=== PATIENT | male | born 1975 | race Caucasian/White ===

== ENCOUNTER 2017-03-03 19:56 | Emergency (ER) | payer MEDICAID, OTHER ==
[~2017-03-03] VITALS: Ht 175.3 cm; Wt 90.5 kg
[2017-03-03] MEDS ORDERED: PERTUSS(ACELL),DIPH,TET VAC/PF 0.5 ML VIAL IM ONE (21:30)
[2017-03-03] MEDS ORDERED: HYDROCODONE/ACETAMINOPHEN 5-325 MG TABLET PO ONE (21:30)
[2017-03-03 22:22] VITALS: BP 142/82
== END 2017-03-03 22:25 | disposition home or self-care (01) ==
LOC: EMS 19:58
DX: S91.302A Unspecified open wound, left foot, initial encounter (principal); R03.0 Elevated blood-pressure reading, without diagnosis of hypertension; F19.90 Other psychoactive substance use, unspecified, uncomplicated; W22.8XXA Striking against or struck by other objects, initial encounter; Y93.01 Activity, walking, marching and hiking; Y92.89 Other specified places as the place of occurrence of the external cause; Y99.8 Other external cause status
CPT/HCPCS: 90471; 90715; 99284

== ENCOUNTER 2018-03-09 17:33 | Emergency (ER) | payer OTHER ==
[~2018-03-09] VITALS: Ht 172.7 cm; Wt 90.9 kg
[2018-03-09 18:03] VITALS: BP 141/86
== END 2018-03-09 21:39 | disposition left against medical advice (07) ==
LOC: EMS 17:33
DX: M25.529 Pain in unspecified elbow (principal); Z53.21 Procedure and treatment not carried out due to patient leaving prior to being seen by health care provider

== ENCOUNTER 2019-05-16 17:29 | Emergency (ER) | payer OTHER ==
[~2019-05-16] VITALS: Ht 175.3 cm; Wt 100.0 kg
[2019-05-16 18:15] LABS: BASOPHILS % (AUTO) 1.1 % (0.0-2.0); EOSINOPHILS % (AUTO) 3.5 % (1.0-6.0); HEMATOCRIT 37.8 % (41-53); HEMOGLOBIN 11.9 g/dL (13.5-17.5); LYMPHOCYTES # (AUTO) 0.9 K/uL (1.0-4.8); LYMPHOCYTES % (AUTO) 19.9 % (22.0-44.0); MEAN CORPUSCULAR HEMOGLOBIN 26.2 pg (26.0-34.0); MEAN CORPUSCULAR HGB CONC 31.4 G/dL (31.0-37.0); MEAN CORPUSCULAR VOLUME 83 fL (80-100); MONOCYTES # (AUTO) 0.3 K/uL (0.1-1.0); MONOCYTES % (AUTO) 6.6 % (2.0-9.0); NEUTROPHILS # (AUTO) 3.1 K/uL (1.8-7.7); NEUTROPHILS % (AUTO) 68.9 % (40.0-70.0); PLATELET COUNT (AUTO) 398 K/uL (150-450); RED BLOOD CELL COUNT(AUTO) 4.53 MIL/uL (4.50-5.90); RED CELL DISTRIBUTION WIDTH 17.3 % (11.5-14.5)
[2019-05-16 18:25] LABS: ANION GAP 6 mmol/L (8-16); CARBON DIOXIDE 30 mmol/L (22-29); CHLORIDE 105 mmol/L (98-107); CREATININE 0.92 mg/dL (0.60-1.30); GLOMERULAR FILTR. RATE CALC > 60 mL/min (>60); GLUCOSE,RANDOM 97 mg/dL (70-110); SODIUM SERUM 141 mmol/L (136-145); UREA NITROGEN, BLOOD 12 mg/dL (7-18)
[2019-05-16 18:30] LABS: PROTHROMBIN TIME 10.1 SEC (9.4-11.6)
[2019-05-16 18:44] LABS: B-TYPE NATRIURETIC PEPTIDE 17 pg/mL (0-100)
[2019-05-16 18:50] LABS: ALANINE AMINOTRANSFERASE 37 U/L (12-78); ALBUMIN 3.2 g/dL (3.4-5.0); ALKALINE PHOSPHATASE 103 U/L (46-116); ASPARTATE AMINOTRANSFERASE 28 U/L (15-37); BILIRUBIN,TOTAL 0.2 mg/dL (0.1-1.0); CREATINE KINASE, TOTAL ONLY 195 U/L (39-308); TOTAL PROTEIN, SERUM 7.4 g/dL (6.4-8.2)
[2019-05-16 19:08] LABS: APPEARANCE,URINE CLEAR (CLEAR); BILIRUBIN,URINE NEGATIVE (NEGATIVE); GLUCOSE, URINE (UA) NEGATIVE (NEGATIVE); KETONES,URINE NEGATIVE (NEGATIVE); LEUKOCYTE ESTERASE ,URINE NEGATIVE (NEGATIVE); NITRATE,URINE NEGATIVE (NEGATIVE); OCCULT BLOOD,URINE NEGATIVE (NEGATIVE); PH,URINE 7.5 (5.0-8.0); PROTEIN,URINE NEGATIVE (NEGATIVE); UROBILINOGEN,URINE 0.2 mg/dL (<=1.0)
[2019-05-16 19:40] VITALS: BP 119/71
== END 2019-05-16 19:51 | disposition home or self-care (01) ==
LOC: EMS 17:31
DX: R60.0 Localized edema (principal); F19.90 Other psychoactive substance use, unspecified, uncomplicated
CPT/HCPCS: 93005

== ENCOUNTER 2021-02-15 19:32 | Emergency (ER) | payer OTHER ==
[~2021-02-15] VITALS: Ht 177.8 cm; Wt 104.5 kg
[2021-02-15] MEDS ORDERED: BUPR75 PO (19:53)
[2021-02-15 20:33] LABS: BASOPHILS % (AUTO) 0.6 % (0.0-2.0); EOSINOPHILS % (AUTO) 0.1 % (1.0-6.0); HEMATOCRIT 47.5 % (41-53); LYMPHOCYTES # (AUTO) 1.6 K/uL (1.0-4.8); LYMPHOCYTES % (AUTO) 17.4 % (22.0-44.0); MEAN CORPUSCULAR HEMOGLOBIN 28.4 pg (26.0-34.0); MEAN CORPUSCULAR HGB CONC 33.7 G/dL (31.0-37.0); MEAN CORPUSCULAR VOLUME 84 fL (80-100); MONOCYTES # (AUTO) 0.4 K/uL (0.1-1.0); NEUTROPHILS # (AUTO) 7.4 K/uL (1.8-7.7); NEUTROPHILS % (AUTO) 77.9 % (40.0-70.0); PLATELET COUNT (AUTO) 355 K/uL (150-450); RED BLOOD CELL COUNT(AUTO) 5.63 MIL/uL (4.50-5.90); RED CELL DISTRIBUTION WIDTH 14.5 % (11.5-14.5)
[2021-02-15 20:55] LABS: CALCIUM, TOTAL 9.2 mg/dL (8.8-10.5); CREATININE 1.5 mg/dL (0.60-1.30)
[2021-02-15 20:56] LABS: ALBUMIN 4.1 g/dL (3.4-5.0); BILIRUBIN,TOTAL 0.5 mg/dL (0.1-1.0)
[2021-02-15] MEDS ORDERED: KETOROLAC TROMETHAMINE 30 MG/ML VIAL IVP ONE (22:45)
[2021-02-15] MEDS ORDERED: IOHEXOL 350 MG/ML 100 ML VIAL ONE (22:48)
[2021-02-15] MEDS ORDERED: SODIUM CHLORIDE 0.9% 100 ML ONE (22:48)
[2021-02-15 22:52] LABS: APPEARANCE,URINE CLOUDY (CLEAR); GLUCOSE, URINE (UA) NEGATIVE (NEGATIVE); KETONES,URINE >=80 mg/dL (NEGATIVE); LEUKOCYTE ESTERASE ,URINE SMALL (NEGATIVE); NITRATE,URINE NEGATIVE (NEGATIVE); OCCULT BLOOD,URINE LARGE (NEGATIVE); PH,URINE 6.5 (5.0-8.0); PROTEIN,URINE POS 1+ (NEGATIVE)
[2021-02-15 23:11] LABS: BILIRUBIN,URINE PRELIM. POSITIVE (NEGATIVE)
[2021-02-15] MEDS ORDERED: SODIUM CHLORIDE 0.9% 1,000 ML IV ONE (23:15)
[2021-02-15 23:16] LABS: RBC,URINE >100 /HPF (0-2)
[2021-02-15 23:17] LABS: BACTERIA,URINE Rare /HPF (None Seen)
[2021-02-16] MEDS ORDERED: HYDR-4723 PO (02:06)
[2021-02-16] MEDS ORDERED: HYDROCODONE/ACETAMINOPHEN 5-325 MG TABLET PO ONE (02:30)
[2021-02-16 02:35] VITALS: BP 132/72
== END 2021-02-16 02:39 | disposition home or self-care (01) ==
LOC: EMS 19:35
DX: N13.2 Hydronephrosis with renal and ureteral calculous obstruction (principal); N62 Hypertrophy of breast; F41.9 Anxiety disorder, unspecified; F20.9 Schizophrenia, unspecified
CPT/HCPCS: 36415; 74177; 80053; 81001; 83690; 85025; 93005; 96361; 96374; 99285; J1885; J7050; Q9967; 99284

== ENCOUNTER 2022-03-07 11:20 | Emergency (ER) | payer OTHER ==
[~2022-03-07] VITALS: Ht 175.3 cm; Wt 102.3 kg
[~2022-03-07 11:20] MED LIST: BUPR-344 PO; HYDR-4723 PO
[2022-03-07 13:38] VITALS: BP 136/89
== END 2022-03-07 14:08 | disposition home or self-care (01) ==
LOC: EMS 11:40
DX: H53.9 Unspecified visual disturbance (principal); F41.9 Anxiety disorder, unspecified; F20.9 Schizophrenia, unspecified; Z01.89 Encounter for other specified special examinations
CPT/HCPCS: 99283; Z7502

== ENCOUNTER 2023-09-14 20:42 | Emergency (ER) | payer OTHER ==
[~2023-09-14] VITALS: Ht 175.3 cm; Wt 113.6 kg
[~2023-09-14 20:42] MED LIST changes: +HYDR-4062 PO; -HYDR-4723 PO
[2023-09-14] MEDS ORDERED: FLUT16SP NASAL (20:52)
[2023-09-14 20:53] VITALS: TEMP 98.2
[2023-09-15] MEDS ORDERED: IBUP-1492 PO (00:30)
[2023-09-15 01:20] VITALS: BP 135/87; PULSE 91; RESP 18
== END 2023-09-15 01:38 | disposition home or self-care (01) ==
LOC: EMS 20:42
DX: S91.202A Unspecified open wound of left great toe with damage to nail, initial encounter (principal); S90.112A Contusion of left great toe without damage to nail, initial encounter; W22.8XXA Striking against or struck by other objects, initial encounter; Y93.89 Activity, other specified; Y92.89 Other specified places as the place of occurrence of the external cause; Y99.8 Other external cause status
CPT/HCPCS: 99283